=== PATIENT | male | born 1990 | race Caucasian/White ===

== ENCOUNTER 2019-08-03 11:13 | Emergency (ER) | payer BC ==
[~2019-08-03] VITALS: Ht 180.3 cm; Wt 77.6 kg
[2019-08-03 11:19] VITALS: Ht 180.3 cm; Wt 77.6 kg
[2019-08-03 12:04] LABS: microscopic required? YES; urine erythrocyte 3+ (NEGATIVE)
[2019-08-03 12:06] LABS: BASOPHIL % 0.4 % (0-2); PLATELET COUNT 294 x10^3mcL (130-400); RED CELL DISTRIBUTION WIDTH 12.2 % (11.5-14.5)
[2019-08-03 12:20] LABS: CALCIUM 9.3 mg/dL (8.5-10.1); CHLORIDE SERUM 102 mmol/L (98-107); GFR1 > 60 mL/min; GLUCOSE SERUM 105 mg/dL (74-106); POTASSIUM SERUM 3.9 mmol/L (3.5-5.1); SODIUM SERUM 141 mmol/L (136-145)
[2019-08-03 12:27] LABS: AMPHETAMINE QUAL UR NONE DETECTED (See below)
[2019-08-03 12:30] LABS: ALBUMIN 4.7 g/dL (3.4-5.0); ALKALINE PHOSPHATASE 108 U/L (46-116); ALT/SGPT 30 U/L (16-63); AST/SGOT 10 U/L (15-37); BILIRUBIN TOTAL 0.45 mg/dL (0.20-1.00); CHOLESTEROL 186 mg/dL (<200); CHOLESTEROL/HDL RATIO 4.8; HDL CHOLESTEROL 39 mg/dL (40-60); LIPASE 140 IU/L (73-393); TOTAL PROTEIN, SERUM 8.3 g/dL (6.4-8.2); TRIGLYCERIDES 89 mg/dL (<150)
[2019-08-03 12:31] LABS: T3 TOTAL 1.07 ng/mL
[2019-08-03 12:32] LABS: FREE T4 1.03 ng/dL (0.76-1.46); FREE THYROXINE INDEX 2.9 ug/dL (1.4-4.5); T4(THYROXINE) 8.3 ug/dL (4.7-13.3)
[2019-08-03 14:33] VITALS: BP 119/75
== END 2019-08-03 14:33 | disposition home or self-care (01) ==
LOC: ED 11:13
PROVIDERS: Specialist
DX: R42 Dizziness and giddiness (principal); Z90.89 Acquired absence of other organs
CPT/HCPCS: 82962; 83880; 84439; G0480; J7030; Q0092